=== PATIENT | male | born 1965 | race Caucasian/White ===

== ENCOUNTER 2021-12-01 08:59 | Emergency (ER) | payer OTHER ==
[2021-12-01] VITALS (18 sets, daily range): BP systolic 140–197; BP diastolic 84–123
[~2021-12-01] VITALS: Ht 172.7 cm; Wt 68.2 kg
[2021-12-01 10:04] LABS: URINE BILIRUBIN - DIPSTICK NEGATIVE (NEGATIVE); URINE BLOOD DIPSTICK LARGE (NEGATIVE); URINE COLOR BROWN; URINE GLUCOSE - DIPSTICK NEGATIVE (NEGATIVE); URINE KETONE NEGATIVE (NEGATIVE); URINE LEUK ESTERASE NEGATIVE (NEGATIVE); URINE NITRITE - DIPSTICK NEGATIVE (Negative); URINE PROTEIN - DIPSTICK 100 mg/dL (NEG-TRACE); URINE SPECIFIC GRAVITY >=1.030; URINE UROBILINOGEN - DIPSTICK 0.2 E.U./dL (0.2)
[2021-12-01 10:05] LABS: URINE RBC TNTC RBC/hpf (0-5)
[2021-12-01 10:57] LABS: HEMOGLOBIN 13.6 g/dl (14.0-18.0); IMMATURE GRANULOCYTES 0.2 % (0.0-5.0); MEAN CELL VOLUME 93.5 fL CALC (80.0-100.0); MEAN CORPUSCULAR HGB 29.6 pG CALC (26.0-32.0); MEAN CORPUSCULAR HGB CONC 31.6 g/dL CAL (32.0-36.0); NEUT# 6.72 thou/uL (1.82-7.42); RED BLOOD COUNT 4.6 mill/uL (4.70-6.10); RED CELL DISTRI WIDTH 13.7 % (11.5-15.5)
[2021-12-01 11:03] LABS: PROTHROMBIN TIME 9.9 SECONDS (9.0-12.5)
[2021-12-01 11:05] LABS: ALBUMIN 4.1 g/dL (3.2-5.0); ALKALINE PHOSPHATASE 59 u/l (38-126); ANION GAP 12 (6-22 (CALC)); BILIRUBIN, TOTAL 0.5 mg/dL (0.0-1.4); BUN 14 mg/dL (9-20); BUN/CREATININE RATIO 21 (12-20 (CALC)); CARBON DIOXIDE 27 mmol/l (22-30); CHLORIDE 106 mmol/l (95-108); CREATININE 0.6 mg/dL (0.7-1.3); GFR FOR AFR.AMER. > 60 ML/MIN (>=60 (CALC)); GFR OTHER RACES > 60 ML/MIN (>=60 (CALC)); POTASSIUM 4.7 mmol/l (3.5-5.1); SGOT/AST 29 u/l (17-59); SODIUM 139 mmol/l (137-146); TOTAL PROTEIN 6.7 g/dL (6.3-8.2)
[2021-12-01] MEDS ORDERED: [UNRECOGNIZED DRUG - SUPPLY] XX (14:05)
== END 2021-12-01 14:34 | disposition home or self-care (01) | DRG 696 ==
LOC: ED 08:59
PROVIDERS: Family Medicine
DX: R33.9 Retention of urine, unspecified (principal); N40.0 Benign prostatic hyperplasia without lower urinary tract symptoms; I10 Essential (primary) hypertension